=== PATIENT | male | born 1990 | race Caucasian/White ===

== ENCOUNTER 2018-09-04 03:28 | Emergency (ER) | payer OTHER ==
[2018-09-04 03:39] VITALS: BMI 25.7
--- NOTE | 2018-09-04 03:54 | PDOC ---
History of Present Illness - General Chief Complaint: Pain, Acute Stated Complaint: ABD PAIN Time Seen by Provider: 09/04/18 03:48 History Source: Patient Exam Limitations: No Limitations - History of Present Illness Initial Comments: 09/04/18 04:00 This is a 28-year-old male who comes in complaining of several days of increasing left upper quadrant abdominal pain radiating to his back. Patient said that it is worse when he takes a deep breath. Patient started running a fever tonight so he came in for evaluation. Patient says he is otherwise healthy. Patient said he does drink one or 2 beers on a regular basis and did drink a little heavier than usual this weekend but not excessively so according to him. Patient said in the past he has been a heavy drinker but has cut back on his drinking over the last couple years. Patient denies history of pancreatitis Allergies: None Past Medical History: none Social history: Lives with family. No smoking. No alcohol. No illicit drugs. Surgical history: None General: No fevers or chills, no weakness, no weight loss HEENT: No change in vision. No sore throat,. No ear pain CardioVascular: no chest discomfort. No shortness of breath Respiratory:No cough, or wheezing. Gastrointestinal: no nausea, vomiting, diarrhea or constipation, No rectal bleeding, + LUQ abd. pain radiating to the back Genitourinary: No dysuria, hematuria, or frequency Musculoskeletal: No joint or muscle pain or swelling Neurologic: No headache, vertigo, dizziness or loss of consciousness Psychiatric: nor depression Skin: No rashes or easy bruising Endocrine: no increased thirst or abnormal weight change Allergic: no skin or latex allergy All other systems reviewed and normal Exam: General: Well-nourished well-developed individual, no acute distress HEENT: Throat: Normal, tonsils normal, no erythema or exudate Neck: Supple, no meningeal signs, no lymphadenopathy Eyes::Pupils equal reactive and round, extraocular motion intact Chest: Nontender to palpation Cardiac: S1-S2 normal, regular rate and rhythm, no murmurs rubs or gallops Respiratory: Lungs clear to auscultation bilateral Abdomen: Soft, nondistended, normal bowel sounds, mild tenderness on deep palp LUQ, no guarding or rebound. Extremities: Warm, dry, no cyanosis, clubbing, or edema Skin: No rashes Neuro: Alert and oriented x3, CN II - XII intact, nonfocal exam with normal strength, normal sensation, normal reflexes, normal gait, Psych: Normal mood and affect Assessment and plan: This is a 28-year-old male who comes in complaining of left upper quadrant pain times several days progressive. Workup initiated to rule out pancreatitis, gastritis, infectious causes, 05 30 patient comfortably resting, bleeding results of labs once labs are back we will obtain CT scan abdomen and pelvis. 09/04/18 07:00 Care of this patient transferred to Dr. Urbina at 7 AM Patient is a 28-year-old male comes in complaining of abdominal pain. Patient's chemistries and CBC are normal however a CAT scan was obtained. Results of CAT scan is still pending Case discussed in detail with oncoming Emergency Physician including history, physical exam and ancillary studies. Oncoming Emergency Physician has assumed care for the patient and will complete the evaluation and treatment. Patient is aware of the plan. Pt is clinically unchanged and stable. Past History - Past Medical History Allergies/Adverse Reactions: Allergies Allergy/AdvReac Type Severity Reaction Status Date / Time No Known Allergies Allergy Unverified 09/04/18 03:29 Home Medications: Ambulatory Orders Escitalopram Oxalate [Lexapro -] 10 mg PO DAILY 09/04/18 Lisdexamfetamine Dimesylate [Vyvanse] 10 mg PO DAILY 09/04/18 COPD: No Psychiatric Problems: Yes - Suicide/Smoking/Psychosocial Hx Smoking History: Current some day smoker Number of Cigarettes Smoked Daily: 0 Information on smoking cessation initiated: Yes *Physical Exam - Vital Signs Last Vital Signs Temp Pulse Resp BP Pulse Ox 100 F H 90 16 154/91 98 09/04/18 03:33 09/04/18 03:33 09/04/18 03:33 09/04/18 03:33 09/04/18 03:33 Moderate Sedation - Procedure Monitoring Vital Signs: Procedure Monitoring Vital Signs Temperature 100 F H 09/04/18 03:33 Pulse Rate 90 09/04/18 03:33 Respiratory Rate 16 09/04/18 03:33 Blood Pressure 154/91 09/04/18 03:33 O2 Sat by Pulse Oximetry (%) 98 09/04/18 03:33 ED Treatment Course - LABORATORY CBC & Chemistry Diagram: 09/04/18 03:55 09/04/18 03:55 *DC/Admit/Observation/Transfer Diagnosis at time of Disposition: Abdominal pain - Discharge Dispostion Disposition: HOME Condition at time of disposition: Good - Referrals Referrals: [facility] [place] [facility] [place] [Provider Group] Kathie Rosas MD [Staff Physician] - - Patient Instructions Printed Discharge Instructions: Acute Abdominal Pain Additional Instructions: Drink plenty of fluids. [place] diet for the next several days. Take over-the- counter Pepcid and Maalox as directed on package. Follow-up with Dr. Childs [facility] neurology next week. Return to emergency department for any severe worsening symptoms or for any concerns. - Post Discharge Activity
[2018-09-04] MEDS ORDERED: morphine CARPU-JECT 2 MG/1 ML DISP.SYRIN IVPUSH ONE (03:57)
[2018-09-04] MEDS ORDERED: SODIUM CHLORIDE 1,000 ML IV ONE (03:57)
[2018-09-04] MEDS ORDERED: morphine SULFATE 4 MG/ML VIAL ONE (04:01)
[2018-09-04] MEDS ORDERED: ACETAMINOPHEN 1000 MG/100 ML VIAL (NON FORMULARY) IVPB ONE (04:05)
[2018-09-04] MEDS ORDERED: ACETAMINOPHEN INJECTION 100 ML IVPB ONE (04:08)
[2018-09-04 05:18] LABS: URINE APPEARANCE CLEAR; URINE BILIRUBIN NEGATIVE (<2.0 mg/dL); URINE COLOR STRAW; URINE GLUCOSE (UA) NEGATIVE (NEGATIVE); URINE KETONE NEGATIVE (NEGATIVE); URINE LEUK ESTERASE NEGATIVE (NEGATIVE); URINE NITRITE NEGATIVE (NEGATIVE); URINE PROTEIN NEGATIVE (NEGATIVE); URINE UROBILINOGEN NEGATIVE mg/dL (0.2-1.0)
[2018-09-04 05:33] LABS: BASO % 0.7 % (0-2.0); EOS % 1.3 % (0-4.5); HEMATOCRIT 41.6 % (35.4-49); HEMOGLOBIN 14.9 GM/dL (11.7-16.9); LYMPH % 12.5 % (8-40); MCH 31.2 pg (25.7-33.7); MCHC 35.7 g/dl (32.0-35.9); MEAN CELL VOLUME 87.5 fl (80-96); MEAN PLT VOLUME 8.2 fl (7.5-11.1); MONO % 9.5 % (3.8-10.2); PLATELET COUNT 215 K/MM3 (134-434); RBC 4.76 M/mm3 (4.00-5.60); RDW 13.2 % (11.9-15.9); WHITE BLOOD COUNT 8.3 K/mm3 (4.0-10.0)
[2018-09-04 05:52] LABS: ALK PHOS 60 U/L (45-117); ANION GAP 5 MMOL/L (8-16); BILIRUBIN,TOTAL 0.4 mg/dL (0.2-1); BLOOD UREA NITROGEN 17 mg/dL (7-18); CALCIUM 8.8 mg/dL (8.5-10.1); CHLORIDE 102 mmol/L (98-107); CO2 29 mmol/L (21-32); CREATININE 0.9 mg/dL (0.55-1.3); GLUCOSE,RANDOM 92 mg/dL (74-106); LIPASE 172 U/L (73-393); POTASSIUM 4.2 mmol/L (3.5-5.1); SGOT/AST 29 U/L (15-37); SGPT/ALT 45 U/L (13-61); SODIUM 136 mmol/L (136-145); TOT PROT 7.2 g/dl (6.4-8.2)
[2018-09-04 07:49] VITALS: BP 122/80; PULSE 75; TEMP 98.3
--- NOTE | 2018-09-04 08:13 | PDOC ---
*Physical Exam - Vital Signs Last Vital Signs Temp Pulse Resp BP Pulse Ox 98.3 F 75 16 122/80 100 09/04/18 07:48 09/04/18 07:48 09/04/18 03:33 09/04/18 07:48 09/04/18 07:48 ED Treatment Course - LABORATORY CBC & Chemistry Diagram: 09/04/18 03:55 09/04/18 03:55 - ADDITIONAL ORDERS Additional order review: Laboratory Results 09/04/18 09/04/18 09/04/18 04:55 03:55 03:55 Sodium 136 Potassium 4.2 Chloride 102 Carbon Dioxide 29 Anion Gap 5 L BUN 17 Creatinine 0.9 Creat Clearance w eGFR > 60 Random Glucose 92 Lactic Acid 0.7 Calcium 8.8 Total Bilirubin 0.4 AST 29 ALT 45 Alkaline Phosphatase 60 Total Protein 7.2 Albumin 4.0 Lipase 172 Urine Color Straw Urine Appearance Clear Urine pH 6.0 Ur Specific [place] 1.010 Urine Protein Negative Urine Glucose (UA) Negative Urine Ketones Negative Urine Blood Negative Urine Nitrite Negative Urine Bilirubin Negative Urine Urobilinogen Negative Ur Leukocyte Esterase Negative 09/04/18 03:55 RBC 4.76 MCV 87.5 MCHC 35.7 RDW 13.2 MPV 8.2 Neutrophils % 76.0 Lymphocytes % 12.5 Monocytes % 9.5 Eosinophils % 1.3 Basophils % 0.7 - Medications Given in the ED: ED Medications Discontinued Medications Generic Name Dose Route Start Last Admin Trade Name Freq PRN Reason Stop Dose Admin Acetaminophen 1,000 mg 09/04/18 04:05 09/04/18 04:15 Ofirmev Injection - IVPB 09/04/18 04:06 1,000 mg ONCE ONE Administration Sodium Chloride 1,000 mls @ 1,000 mls/hr 09/04/18 03:57 09/04/18 04:15 Normal Saline - IV 09/04/18 04:56 1,000 mls/hr .Q1H ONE Administration Morphine Sulfate 2 mg 09/04/18 03:57 09/04/18 04:17 Morphine Injection - IVPUSH 09/04/18 03:58 Not Given ONCE ONE Medical Decision Making - Medical Decision Making 09/04/18 08:10 Asked to follow-up CAT scan. No acute findings on CAT scan Laboratory and urinalysis within normal limits Reevaluation patient feels much better only mild left upper quadrant pain Recommended follow-up with gastroenterology Findings, the need for follow-up and strict return instructions discussed patient. *DC/Admit/Observation/Transfer Diagnosis at time of Disposition: Abdominal pain Qualifiers: Abdominal location: left upper quadrant Qualified Code(s): R10.12 - Left upper quadrant pain - Discharge Dispostion Disposition: HOME Condition at time of disposition: Good - Referrals Referrals: [facility] [place] [facility] [place] [Provider Group] Kathie Rosas MD [Staff Physician] - - Patient Instructions Printed Discharge Instructions: Acute Abdominal Pain Additional Instructions: Drink plenty of fluids. [place] diet for the next several days. Take over-the- counter Pepcid and Maalox as directed on package. Follow-up with Dr. Childs [facility] neurology next week. Return to emergency department for any severe worsening symptoms or for any concerns. - Post Discharge Activity
== END 2018-09-04 08:25 | disposition home or self-care (01) ==
LOC: FER 03:28
PROC: 3E033NZ Introduction of Analgesics, Hypnotics, Sedatives into Peripheral Vein, Percutaneous Approach (ICD-10-PCS; principal; 2018-09-04)
PROC: 3E0337Z Introduction of Electrolytic and Water Balance Substance into Peripheral Vein, Percutaneous Approach (ICD-10-PCS; 2018-09-04)
DX: R10.12 Left upper quadrant pain (principal)
CPT/HCPCS: 36415; 74177-TC; 80053; 81003; 83605; 83690; 85025; 87040; 99283-25; J0131; J7030